=== PATIENT | female | born 1990 | race African-American/Black ===

== ENCOUNTER 2017-03-31 06:32 | Inpatient (IN) | payer MEDICAID, OTHER ==
[~2017-03-31] VITALS: Ht 160 cm; Wt 87.5 kg
[2017-03-31] MEDS ORDERED: DEXT 5%/LACTATED RINGERS 1,000 ML IV SCH (06:52)
[2017-03-31] MEDS ORDERED: NALOXONE HCL 0.4 MG/ML 1ML VIAL IM PRN (07:00)
[2017-03-31] MEDS ORDERED: CARBOPROST TROMETHAMINE 250 MCG/ML AMPUL IM PRN (07:00)
[2017-03-31] MEDS ORDERED: METHYLERGONOVINE MALEATE 0.2 MG/ML IM PRN (07:00)
[2017-03-31] MEDS: LACTATED RINGERS 1,000 ML IV SCH ×2 (07:07→07:48)
[2017-03-31] MEDS ORDERED: CITRIC ACID/SODIUM CITRATE SOLN 30ML UDC PO ONE (07:15)
[2017-03-31 07:20] LABS: CLARITY URINE CLOUDY (CLEAR); COLOR URINE YELLOW (YELLOW); KETONES URINE NEGATIVE (NEGATIVE); LEUKOCYTE ESTERASE URINE 3+ (NEGATIVE); NITRITE URINE NEGATIVE (NEGATIVE); OCCULT BLOOD URINE NEGATIVE (NEGATIVE); PH URINE 6.5 (4.5-8.0); PROTEIN URINE NEGATIVE (NEGATIVE)
[2017-03-31] MEDS ORDERED: LACTATED RINGERS 1,000 ML IV SCH (07:20)
[2017-03-31] MEDS ORDERED: MISOPROSTOL 100MCG TABLET VG NR (07:20)
[2017-03-31 07:24] LABS: BASOPHILS % 0.5 % (0.0-2.0); EOSINOPHILS % 0.6 % (0.0-5.0); HEMATOCRIT. 33.1 % (36.0-48.0); HEMOGLOBIN. 11.5 g/dL (12.0-16.0); LYMPHOCYTES % 25.6 % (20.0-50.0); MEAN CORPUSCULAR HEMOGLOBIN 34.2 pg (28.0-32.0); MEAN CORPUSCULAR VOLUME 98.2 fL (81.0-99.0); MONOCYTES % 10.1 % (2.0-8.0); NEUTROPHILS % 63.2 % (40.0-76.0); PLATELET 134 x1000/uL (130-400); RED BLOOD CELL COUNT 3.37 mill/uL (4.2-5.4); RED CELL DISTRIBUTION WIDTH 13.4 % (11.6-14.6)
[2017-03-31 07:27] LABS: PARTIAL THROMBOPLASTIN TIME 27.8 sec (23.4-31.0)
[2017-03-31] MEDS ORDERED: CEFAZOLIN 2000MG PREMIX 50 ML IV ONE (07:35)
[2017-03-31] MEDS ORDERED: PHENYLEPHRINE HCL 10 MG/ML 1ML (IV VIAL) IV ONE (07:36)
[2017-03-31] MEDS ORDERED: ONDANSETRON HCL 4MG/2ML VIAL ONE (07:36)
[2017-03-31] MEDS ORDERED: MORPHINE SULFATE/PF 1MG/ML 10ML AMP ONE (07:36)
[2017-03-31] MEDS ORDERED: FENTANYL CITRATE/PF 50MCG/ML 2ML VIAL ONE (07:36)
[2017-03-31] MEDS ORDERED: GLYCOPYRROLATE 0.2 MG/ML 2ML VIAL ONE (07:36)
[2017-03-31] MEDS ORDERED: EPHEDRINE SULFATE 50MG/ML VIAL ONE (07:36)
[2017-03-31] MEDS ORDERED: CEFAZOLIN 2,000 MG in DEXT 5% WATER 100 ML IV NR (08:00)
[2017-03-31] MEDS ORDERED: NALOXONE HCL 0.4 MG/ML 1ML VIAL IV PRN (08:00)
[2017-03-31] MEDS ORDERED: DIPHENHYDRAMINE 50MG/ML VIAL IM PRN (08:00)
[2017-03-31] MEDS ORDERED: KETOROLAC 30MG/ML VIAL IV PRN ×2 (08:00→10:15)
[2017-03-31] MEDS ORDERED: BUTORPHANOL TARTRATE 2 MG/ML VIAL IV PRN (08:00)
[2017-03-31] MEDS ORDERED: ONDANSETRON HCL 4MG/2ML VIAL IV PRN (08:00)
[2017-03-31] MEDS ORDERED: CEFAZOLIN 2,000 MG in SODIUM CHLORIDE 0.9% 100 ML IV NR (08:02)
[2017-03-31 08:20] LABS: *AMPHETAMINES SCREEN URINE NEGATIVE (NEGATIVE); *BARBITURATES SCREEN URINE NEGATIVE (NEGATIVE); *BENZODIAZEPINES SCREEN URINE NEGATIVE (NEGATIVE); *COCAINE SCREEN URINE NEGATIVE (NEGATIVE); CANNABINOID URINE SCREEN NEGATIVE (NEGATIVE); METHADONE URINE SCREEN NEGATIVE (NEGATIVE); OPIATES URINE SCREEN NEGATIVE (NEGATIVE); PHENCYCLIDINE URINE SCREEN NEGATIVE (NEGATIVE)
[2017-03-31] MEDS ORDERED: OXYTOCIN 10 UNITS/ML 1ML ONE (09:23)
[2017-03-31] MEDS ORDERED: ESMOLOL HCL 10MG/ML 10ML VIAL IV ONE (09:23)
[2017-03-31] MEDS ORDERED: ACETAMINOPHEN WITH CODEINE 300/30MG TABLET PO PRN ×2 (10:15)
[2017-03-31] MEDS ORDERED: DIPHENHYDRAMINE 50MG/ML VIAL ONE (10:15)
[2017-03-31] MEDS ORDERED: LANOLIN OINT 0.25 GM TUBE TOP PRN (10:15)
[2017-03-31] MEDS ORDERED: BISACODYL 10MG SUPP PR PRN (10:15)
[2017-03-31] MEDS ORDERED: IBUPROFEN 400MG TABLET PO PRN (10:15)
[2017-03-31] MEDS ORDERED: MISOPROSTOL 200MCG TABLET VG NR (10:37)
[2017-03-31] MEDS: DEXT 5%/LR + PITOCIN 20UNITS/L 1,000 ML IV SCH ×2 (11:52→18:50)
[2017-03-31] MEDS ORDERED: SIMETHICONE 80MG TABLET CHEW PO SCH (12:40)
[2017-03-31 12:55] VITALS: BP 113/52
[2017-03-31 13:20] LABS: HEPATITIS B SURFACE ANTIGEN NEGATIVE; RUBELLA IGG 117.7 IU/mL (4.99-10)
[2017-03-31 13:22] VITALS: BP 115/65
[2017-03-31 16:32] VITALS: BP 103/50
[2017-03-31 20:00] VITALS: BP 111/59
[2017-03-31] MEDS ORDERED: DOCUSATE SODIUM 100MG CAPSULE PO SCH (21:00)
[2017-04-01] VITALS: BP 112/60
[2017-04-01 07:10] LABS: BASOPHILS % 0.3 % (0.0-2.0); EOSINOPHILS % 1.6 % (0.0-5.0); HEMATOCRIT. 29.7 % (36.0-48.0); HEMOGLOBIN. 10.1 g/dL (12.0-16.0); LYMPHOCYTES % 14.9 % (20.0-50.0); MEAN CORPUSCULAR HEMOGLOBIN 33.5 pg (28.0-32.0); MEAN CORPUSCULAR VOLUME 98.1 fL (81.0-99.0); MEAN PLATELET VOLUME 10.2 fl (7.4-10.4); MONOCYTES % 12.6 % (2.0-8.0); NEUTROPHILS % 70.6 % (40.0-76.0); PLATELET 128 x1000/uL (130-400); RED BLOOD CELL COUNT 3.03 mill/uL (4.2-5.4); RED CELL DISTRIBUTION WIDTH 13.6 % (11.6-14.6)
[2017-04-01 08:00] VITALS: BP 104/57
[2017-04-01 15:02] VITALS: BP 110/52
[2017-04-01 20:00] VITALS: BP 126/71
[2017-04-01] MEDS ORDERED: ACETAMINOPHEN WITH CODEINE 300/30MG TABLET PO PRN (20:07)
[2017-04-01] MEDS ORDERED: BISACODYL 10MG SUPP PR PRN (20:15)
[2017-04-01] MEDS ORDERED: LANOLIN OINT 0.25 GM TUBE TOP PRN (20:15)
[2017-04-01] MEDS ORDERED: DEXT 5%/LR + PITOCIN 20UNITS/L 1,000 ML IV SCH (20:15)
[2017-04-01] MEDS ORDERED: ONDANSETRON HCL 4MG/2ML VIAL IV PRN (20:15)
[2017-04-01] MEDS: DOCUSATE SODIUM 100MG CAPSULE PO SCH (20:18)
[2017-04-01] MEDS: ACETAMINOPHEN WITH CODEINE 300/30MG TABLET PO PRN (20:19)
[2017-04-02] MEDS: IBUPROFEN 400MG TABLET PO PRN ×2 (02:12→17:34)
[2017-04-02] MEDS: SIMETHICONE 80MG TABLET CHEW PO SCH ×4 (02:14→20:38)
[2017-04-02 05:10] VITALS: BP 112/65
[2017-04-02 08:00] VITALS: BP 117/68
[2017-04-02 17:14] VITALS: BP 124/66
[2017-04-02 19:45] VITALS: BP 122/70
[2017-04-02] MEDS: DOCUSATE SODIUM 100MG CAPSULE PO SCH (20:36)
[2017-04-03] VITALS: BP 123/72
[2017-04-03 04:20] VITALS: BP 118/72
[2017-04-03] MEDS: ACETAMINOPHEN WITH CODEINE 300/30MG TABLET PO PRN (04:45)
[2017-04-03] MEDS: SIMETHICONE 80MG TABLET CHEW PO SCH (08:10)
== END 2017-04-03 12:20 | disposition home or self-care (01) | DRG 540 ==
LOC: L&D 06:32 → OBSVTOIN 06:32 → 7EST PP/OB 12:25 → UNDODISIN 04-01 11:40
PROVIDERS: ADMIT Obstetrics & Gynecology; ATTEND Obstetrics & Gynecology
PROC: 10D00Z1 Extraction of Products of Conception, Low, Open Approach (ICD-10-PCS; principal; 2017-04-01)
DX: O34.211 Maternal care for low transverse scar from previous cesarean delivery (principal); O99.814 Abnormal glucose complicating childbirth; B96.89 Other specified bacterial agents as the cause of diseases classified elsewhere; B37.9 Candidiasis, unspecified; D64.9 Anemia, unspecified; O99.02 Anemia complicating childbirth; O99.824 Streptococcus B carrier state complicating childbirth; O69.81X0 Labor and delivery complicated by cord around neck, without compression, not applicable or unspecified; Z3A.39 39 weeks gestation of pregnancy; Z91.19 Patient's noncompliance with other medical treatment and regimen; Z80.0 Family history of malignant neoplasm of digestive organs; Z37.0 Single live birth
CPT/HCPCS: 36415; 80305; 81001; 85025; 85610; 85730; 86592; 86703; 86762; 86850; 86900; 87340; 88307; J0171; J0690; J1200; J1885; J2274; J2370; J2405; J2590; J3010; J3490; J7050; J7060; J7120; A4315